=== PATIENT | male | born 1975 | race African-American/Black ===

== ENCOUNTER 2017-12-01 03:06 | Emergency (ER) | payer SELFPAY ==
[~2017-12-01] VITALS: Ht 185.4 cm; Wt 82.0 kg
[~2017-12-01 03:06] MED LIST: ARIP5TAB8 PO; BENZ1TAB10 PO; SERT100T12 PO
[2017-12-01 06:56] VITALS: BP 112/65
== END 2017-12-01 07:53 | disposition home or self-care (01) ==
LOC: EMS 03:07
DX: F10.129 Alcohol abuse with intoxication, unspecified (principal); F17.210 Nicotine dependence, cigarettes, uncomplicated; Y90.8 Blood alcohol level of 240 mg/100 ml or more
CPT/HCPCS: 36415; 99283; G0480

== ENCOUNTER 2018-06-30 09:47 | Inpatient (IN) | payer MEDICAID ==
[~2018-06-30] VITALS: Ht 182.9 cm; Wt 77.1 kg
[2018-06-30 09:50] VITALS: BP 117/76
[2018-06-30] MEDS ORDERED: RISP1 PO (10:25)
[2018-06-30] MEDS ORDERED: BUPR75 PO (10:25)
[2018-06-30] MEDS ORDERED: HALOPERIDOL 5 MG TABLET PO PRN (10:30)
[2018-06-30] MEDS ORDERED: LORazepam 2 MG TABLET PO PRN (10:30)
[2018-06-30] MEDS ORDERED: ZOLPIDEM TARTRATE 10 MG TABLET PO PRN (10:30)
[2018-06-30] MEDS ORDERED: GuaiFENesin/D-METHORPHAN [SUGAR-FREE] 200-20MG/10 ML SYRUP UDCUP PO PRN (11:15)
[2018-06-30] MEDS ORDERED: ACETAMINOPHEN 325 MG TABLET PO PRN (11:15)
[2018-06-30] MEDS ORDERED: MAGNESIUM HYDROXIDE SUSPENSION 30 ML UDCUP PO PRN (11:15)
[2018-06-30] MEDS ORDERED: ONDANSETRON HCL 4 MG TABLET PO PRN (11:15)
[2018-06-30] MEDS ORDERED: LOPERAMIDE HCL 2 MG CAPSULE PO PRN (11:15)
[2018-06-30] MEDS ORDERED: CloNIDine HCL 0.1 MG TABLET PO PRN (11:15)
[2018-06-30] MEDS ORDERED: NICOTINE 14 MG/24 HOUR PATCH TD PRN (11:15)
[2018-06-30] MEDS ORDERED: DOCUSATE SODIUM 100 MG CAPSULE PO PRN (11:15)
[2018-06-30] MEDS ORDERED: ALBUTEROL SULFATE HFA 90 MCG/PUFF 8 GM INHALER IH PRN (11:15)
[2018-06-30] MEDS ORDERED: MAG HYDROX/AL HYDROX/SIMETH ES 30 ML SUSPENSION UDCUP PO PRN (11:15)
[2018-06-30] MEDS ORDERED: IBUPROFEN 400 MG TABLET PO PRN (11:15)
[2018-06-30] MEDS ORDERED: PETROLATUM,WHITE 71 GM JELLY TP PRN (11:15)
[2018-06-30] MEDS: RisperiDONE 1 MG TABLET PO SCH (16:19)
[2018-06-30 16:34] VITALS: BP 121/90
[2018-07-01 06:38] VITALS: BP 104/64
[2018-07-01 08:11] LABS: AMPHET/METH SCREEN,URINE NEGATIVE (NEGATIVE); BARBITURATE SCREEN, URINE NEGATIVE (NEGATIVE); BENZODIAZEPINES SCREEN,URINE NEGATIVE (NEGATIVE); CANNABINOID SCREEN,URINE POSITIVE (NEGATIVE); COCAINE SCREEN,URINE NEGATIVE (NEGATIVE); METHADONE SCREEN, URINE NEGATIVE (NEGATIVE); OPIATE SCREEN,URINE NEGATIVE (NEGATIVE)
[2018-07-01 08:14] LABS: PHENCYCLIDINE SCREEN,URINE NEGATIVE (NEGATIVE)
[2018-07-01 08:39] LABS: BILIRUBIN,URINE NEGATIVE (NEGATIVE); GLUCOSE, URINE (UA) NEGATIVE (NEGATIVE); KETONES,URINE TRACE mg/dL (NEGATIVE); LEUKOCYTE ESTERASE ,URINE NEGATIVE (NEGATIVE); NITRATE,URINE NEGATIVE (NEGATIVE); OCCULT BLOOD,URINE NEGATIVE (NEGATIVE); PROTEIN,URINE NEGATIVE (NEGATIVE)
[2018-07-01 08:52] LABS: APPEARANCE,URINE HAZY (CLEAR)
[2018-07-01] MEDS: BuPROPion HCL XL 150 MG ER TABLET PO SCH (09:04)
[2018-07-01] MEDS: RisperiDONE 1 MG TABLET PO SCH ×2 (09:04→16:53)
[2018-07-01 09:40] VITALS: BP 110/69
[2018-07-01 16:42] VITALS: BP 110/70
[2018-07-02 07:15] VITALS: BP 106/80
[2018-07-02] MEDS: BuPROPion HCL XL 150 MG ER TABLET PO SCH (08:21)
[2018-07-02] MEDS: RisperiDONE 1 MG TABLET PO SCH ×2 (08:21→16:57)
[2018-07-02 08:43] VITALS: BP 107/67
[2018-07-02 16:22] VITALS: BP 97/51
[2018-07-03 06:58] VITALS: BP 108/72
[2018-07-03 09:00] VITALS: BP 105/69
[2018-07-03] MEDS: RisperiDONE 1 MG TABLET PO SCH (09:20)
[2018-07-03] MEDS: BuPROPion HCL XL 150 MG ER TABLET PO SCH (09:21)
[2018-07-03 16:00] VITALS: BP 104/61
[2018-07-03] MEDS: RisperiDONE 2 MG TABLET PO SCH (17:04)
[2018-07-04 04:49] VITALS: BP 108/72
[2018-07-04] MEDS: BuPROPion HCL XL 150 MG ER TABLET PO SCH (08:18)
[2018-07-04] MEDS: RisperiDONE 2 MG TABLET PO SCH ×2 (08:18→16:47)
[2018-07-04 08:32] LABS: BASOPHILS % (AUTO) 0.6 % (0.0-2.0); EOSINOPHILS % (AUTO) 3.9 % (1.0-6.0); HEMATOCRIT 39.8 % (41-53); HEMOGLOBIN 13.3 g/dL (13.5-17.5); LYMPHOCYTES # (AUTO) 1.4 K/uL (1.0-4.8); LYMPHOCYTES % (AUTO) 33.1 % (22.0-44.0); MEAN CORPUSCULAR HEMOGLOBIN 27.7 pg (26.0-34.0); MEAN CORPUSCULAR HGB CONC 33.3 G/dL (31.0-37.0); MEAN CORPUSCULAR VOLUME 83 fL (80-100); MONOCYTES # (AUTO) 0.3 K/uL (0.1-1.0); MONOCYTES % (AUTO) 7.8 % (2.0-9.0); NEUTROPHILS # (AUTO) 2.3 K/uL (1.8-7.7); NEUTROPHILS % (AUTO) 54.6 % (40.0-70.0); PLATELET COUNT (AUTO) 301 K/uL (150-450); RED BLOOD CELL COUNT(AUTO) 4.79 MIL/uL (4.50-5.90); RED CELL DISTRIBUTION WIDTH 15.3 % (11.5-14.5)
[2018-07-04 08:42] LABS: HEMOGLOBIN A1C 5.7 % (4.5-6.2)
[2018-07-04 08:54] VITALS: BP 103/69
[2018-07-04 09:18] LABS: ALANINE AMINOTRANSFERASE 19 U/L (12-78); ALBUMIN 3.5 g/dL (3.4-5.0); ALKALINE PHOSPHATASE 44 U/L (46-116); ANION GAP 4 mmol/L (8-16); ASPARTATE AMINOTRANSFERASE 13 U/L (15-37); BILIRUBIN,TOTAL 0.2 mg/dL (0.1-1.0); CALCIUM, TOTAL 8.6 mg/dL (8.8-10.5); CARBON DIOXIDE 32 mmol/L (22-29); CHLORIDE 106 mmol/L (98-107); CHOL/HDL RATIO 3.4 (4.2-7.3); CHOLESTEROL 155 mg/dL (131-200); CREATININE 1.04 mg/dL (0.60-1.30); FREE T4 (FREE THYROXINE) 0.79 ng/dL (0.76-1.46); GLOMERULAR FILTR. RATE CALC > 60 mL/min (>60); GLUCOSE,RANDOM 79 mg/dL (70-110); HDL CHOLESTEROL 45 mg/dL (40-60); LDL CHOL (CALC.) 92 mg/dL (0-130); POTASSIUM 4.6 mmol/L (3.5-5.1); SODIUM SERUM 142 mmol/L (136-145); TOTAL PROTEIN, SERUM 6.9 g/dL (6.4-8.2); TRIGLYCERIDES 88 mg/dL (15-150); UREA NITROGEN, BLOOD 14 mg/dL (7-18)
[2018-07-04 16:00] VITALS: BP 104/58
[2018-07-04] MEDS: FERROUS SULFATE 325 MG EC TABLET PO SCH (16:46)
[2018-07-05 03:23] VITALS: BP 102/62
[2018-07-05] MEDS: FERROUS SULFATE 325 MG EC TABLET PO SCH ×2 (07:01→17:05)
[2018-07-05 08:35] VITALS: BP 108/58
[2018-07-05] MEDS: FOLIC ACID 1 MG TABLET PO SCH (09:08)
[2018-07-05] MEDS: RisperiDONE 2 MG TABLET PO SCH ×2 (09:08→17:05)
[2018-07-05] MEDS: BuPROPion HCL XL 150 MG ER TABLET PO SCH (09:08)
[2018-07-05 16:00] VITALS: BP 130/85
[2018-07-06 06:36] VITALS: BP 125/78
[2018-07-06] MEDS: FERROUS SULFATE 325 MG EC TABLET PO SCH ×2 (06:41→16:28)
[2018-07-06] MEDS: RisperiDONE 2 MG TABLET PO SCH ×2 (08:18→16:28)
[2018-07-06] MEDS: BuPROPion HCL XL 150 MG ER TABLET PO SCH (08:18)
[2018-07-06] MEDS: FOLIC ACID 1 MG TABLET PO SCH (08:18)
[2018-07-06 08:33] VITALS: BP 121/72
[2018-07-06 16:45] VITALS: BP 108/70
[2018-07-07] MEDS: FERROUS SULFATE 325 MG EC TABLET PO SCH ×2 (06:03→16:19)
[2018-07-07 06:14] VITALS: BP 114/73
[2018-07-07] MEDS: RisperiDONE 2 MG TABLET PO SCH ×2 (08:33→16:19)
[2018-07-07] MEDS: FOLIC ACID 1 MG TABLET PO SCH (08:33)
[2018-07-07] MEDS: BuPROPion HCL XL 150 MG ER TABLET PO SCH (08:33)
[2018-07-07 09:00] VITALS: BP 115/68
[2018-07-07 16:14] VITALS: BP 108/64
[2018-07-08] VITALS: BP 114/56
[2018-07-08] MEDS: FERROUS SULFATE 325 MG EC TABLET PO SCH ×2 (06:34→16:38)
[2018-07-08] MEDS: RisperiDONE 2 MG TABLET PO SCH ×2 (08:29→16:38)
[2018-07-08] MEDS: FOLIC ACID 1 MG TABLET PO SCH (08:29)
[2018-07-08] MEDS: BuPROPion HCL XL 150 MG ER TABLET PO SCH (08:29)
[2018-07-08 09:07] VITALS: BP 116/78
[2018-07-08 16:00] VITALS: BP 124/93
[2018-07-09 01:09] VITALS: BP 128/92
[2018-07-09] MEDS: FERROUS SULFATE 325 MG EC TABLET PO SCH ×2 (06:09→16:04)
[2018-07-09] MEDS: FOLIC ACID 1 MG TABLET PO SCH (08:09)
[2018-07-09] MEDS: BuPROPion HCL XL 150 MG ER TABLET PO SCH (08:09)
[2018-07-09] MEDS: RisperiDONE 2 MG TABLET PO SCH ×2 (08:09→16:04)
[2018-07-09 08:24] VITALS: BP 140/99
[2018-07-09 16:21] VITALS: BP 120/91
[2018-07-10 03:52] VITALS: BP 126/82
[2018-07-10] MEDS: FERROUS SULFATE 325 MG EC TABLET PO SCH ×2 (06:42→17:00)
[2018-07-10 07:00] VITALS: BP 124/80
[2018-07-10] MEDS: BuPROPion HCL XL 150 MG ER TABLET PO SCH (09:18)
[2018-07-10] MEDS: FOLIC ACID 1 MG TABLET PO SCH (09:18)
[2018-07-10] MEDS: RisperiDONE 2 MG TABLET PO SCH ×2 (09:18→17:00)
[2018-07-10 09:26] VITALS: BP 139/87
[2018-07-10] MEDS ORDERED: ZOLPIDEM TARTRATE 10 MG TABLET PO PRN (16:15)
[2018-07-11] MEDS: FERROUS SULFATE 325 MG EC TABLET PO SCH ×2 (06:49→17:05)
[2018-07-11 08:15] VITALS: BP 137/66
[2018-07-11] MEDS: FOLIC ACID 1 MG TABLET PO SCH (09:41)
[2018-07-11] MEDS: BuPROPion HCL XL 150 MG ER TABLET PO SCH (09:41)
[2018-07-11] MEDS: RisperiDONE 2 MG TABLET PO SCH ×2 (09:41→17:05)
[2018-07-11] MEDS: LORazepam 2 MG TABLET PO PRN (11:20)
[2018-07-12] MEDS: FERROUS SULFATE 325 MG EC TABLET PO SCH ×2 (06:39→16:08)
[2018-07-12] MEDS: BuPROPion HCL XL 150 MG ER TABLET PO SCH (08:46)
[2018-07-12] MEDS: RisperiDONE 2 MG TABLET PO SCH (08:46)
[2018-07-12] MEDS: LORazepam 2 MG TABLET PO PRN ×2 (08:46→16:08)
[2018-07-12] MEDS: FOLIC ACID 1 MG TABLET PO SCH (08:46)
[2018-07-12] MEDS: RisperiDONE CONC 3 MG/3 ML SOLUTION ORAL.SYG PO SCH (16:07)
[2018-07-13 04:47] VITALS: BP 128/76
[2018-07-13] MEDS: FERROUS SULFATE 325 MG EC TABLET PO SCH ×2 (07:03→16:43)
[2018-07-13 08:10] VITALS: BP 136/88
[2018-07-13] MEDS: LORazepam 2 MG TABLET PO PRN ×4 (08:11→22:42)
[2018-07-13] MEDS: BuPROPion HCL XL 150 MG ER TABLET PO SCH (08:11)
[2018-07-13] MEDS: FOLIC ACID 1 MG TABLET PO SCH (08:11)
[2018-07-13] MEDS: RisperiDONE CONC 3 MG/3 ML SOLUTION ORAL.SYG PO SCH ×2 (08:11→16:47)
[2018-07-13 16:00] VITALS: BP 138/83
[2018-07-13] MEDS: DIVALPROEX SODIUM 500 MG ER TABLET PO SCH (16:43)
[2018-07-14 00:40] VITALS: BP 135/82
[2018-07-14] MEDS: FERROUS SULFATE 325 MG EC TABLET PO SCH (06:49)
[2018-07-14 07:56] LABS: BASOPHILS % (AUTO) 0.8 % (0.0-2.0); HEMATOCRIT 38.8 % (41-53); HEMOGLOBIN 13.2 g/dL (13.5-17.5); LYMPHOCYTES # (AUTO) 1.6 K/uL (1.0-4.8); LYMPHOCYTES % (AUTO) 25.3 % (22.0-44.0); MEAN CORPUSCULAR HEMOGLOBIN 27.6 pg (26.0-34.0); MEAN CORPUSCULAR HGB CONC 34.1 G/dL (31.0-37.0); MEAN CORPUSCULAR VOLUME 81 fL (80-100); MONOCYTES # (AUTO) 0.5 K/uL (0.1-1.0); MONOCYTES % (AUTO) 8.6 % (2.0-9.0); NEUTROPHILS # (AUTO) 3.6 K/uL (1.8-7.7); NEUTROPHILS % (AUTO) 59.3 % (40.0-70.0); PLATELET COUNT (AUTO) 250 K/uL (150-450); RED BLOOD CELL COUNT(AUTO) 4.79 MIL/uL (4.50-5.90); RED CELL DISTRIBUTION WIDTH 14.6 % (11.5-14.5)
[2018-07-14 07:57] VITALS: BP 130/77
[2018-07-14 08:14] VITALS: BP 130/77
[2018-07-14] MEDS: BuPROPion HCL XL 150 MG ER TABLET PO SCH (08:24)
[2018-07-14] MEDS: FOLIC ACID 1 MG TABLET PO SCH (08:24)
[2018-07-14] MEDS: RisperiDONE CONC 3 MG/3 ML SOLUTION ORAL.SYG PO SCH (08:31)
[2018-07-14] MEDS: DIVALPROEX SODIUM 500 MG ER TABLET PO SCH (08:31)
[2018-07-14] MEDS ORDERED: FOLI1 PO (13:05)
[2018-07-14] MEDS ORDERED: DIVA500T52 PO (13:05)
[2018-07-14] MEDS ORDERED: FERR-89 PO (13:05)
== END 2018-07-14 15:00 | disposition home or self-care (01) | DRG 750 ==
LOC: B2S 10:21 → B3A 07-10 08:24
PROVIDERS: ADMIT Psychiatry & Neurology Psychiatry; ATTEND Psychiatry & Neurology Psychiatry
DX: F25.1 Schizoaffective disorder, depressive type (principal); R45.851 Suicidal ideations; Z59.0 Homelessness; Z28.21 Immunization not carried out because of patient refusal; Z91.5 Personal history of self-harm; Z91.19 Patient's noncompliance with other medical treatment and regimen; G47.00 Insomnia, unspecified; F41.9 Anxiety disorder, unspecified; F17.200 Nicotine dependence, unspecified, uncomplicated; F10.10 Alcohol abuse, uncomplicated; D72.819 Decreased white blood cell count, unspecified; Z71.51 Drug abuse counseling and surveillance of drug abuser; Z71.6 Tobacco abuse counseling
CPT/HCPCS: 80307; 83036; 84439; 84443

== ENCOUNTER 2019-04-13 19:11 | Inpatient (IN) | payer MEDICAID ==
[~2019-04-13] VITALS: Ht 210.8 cm; Wt 78.0 kg
[~2019-04-13 19:11] MED LIST changes: -ARIP5TAB8 PO; -BENZ1TAB10 PO; +BUPR75 PO; +DIVA500T52 PO; +FERR-89 PO; +FOLI1 PO; +RISP1 PO; -SERT100T12 PO
[2019-04-13] MEDS ORDERED: HALOPERIDOL 5 MG TABLET PO PRN (19:45)
[2019-04-13] MEDS ORDERED: LORazepam 2 MG TABLET PO PRN (19:45)
[2019-04-13] MEDS ORDERED: ZOLPIDEM TARTRATE 10 MG TABLET PO PRN (19:45)
[2019-04-13] MEDS ORDERED: BUPR-93 PO (19:52)
[2019-04-13] MEDS ORDERED: RISP3 PO (19:52)
[2019-04-13 20:08] VITALS: BP 112/70
[2019-04-13 21:22] VITALS: BP 126/70
[2019-04-13 21:27] VITALS: BP 126/70
[2019-04-13] MEDS ORDERED: CloNIDine HCL 0.1 MG TABLET PO PRN (23:15)
[2019-04-13] MEDS ORDERED: IBUPROFEN 600 MG TABLET PO PRN (23:15)
[2019-04-13] MEDS ORDERED: LOPERAMIDE HCL 2 MG CAPSULE PO PRN (23:15)
[2019-04-13] MEDS ORDERED: BACITRACIN 28.4 GM OINTMENT TP PRN (23:15)
[2019-04-13] MEDS ORDERED: BENZOCAINE/MENTHOL LOZENGE MM PRN (23:15)
[2019-04-13] MEDS ORDERED: MAGNESIUM HYDROXIDE SUSPENSION 30 ML UDCUP PO PRN (23:15)
[2019-04-13] MEDS ORDERED: ALBUTEROL SULFATE HFA 90 MCG/PUFF 8 GM INHALER IH PRN (23:15)
[2019-04-13] MEDS ORDERED: ONDANSETRON HCL 4 MG TABLET PO PRN (23:15)
[2019-04-13] MEDS ORDERED: PETROLATUM,WHITE 28 GM JELLY TP PRN (23:15)
[2019-04-13] MEDS ORDERED: ACETAMINOPHEN 325 MG TABLET PO PRN (23:15)
[2019-04-13] MEDS ORDERED: MAG HYDROX/AL HYDROX/SIMETH ES 30 ML SUSPENSION UDCUP PO PRN (23:15)
[2019-04-14 05:00] VITALS: BP 117/72
[2019-04-14 07:41] LABS: BASOPHILS % (AUTO) 1.1 % (0.0-2.0); EOSINOPHILS % (AUTO) 4.4 % (1.0-6.0); HEMATOCRIT 36.9 % (41-53); HEMOGLOBIN 12.3 g/dL (13.5-17.5); LYMPHOCYTES # (AUTO) 1.9 K/uL (1.0-4.8); LYMPHOCYTES % (AUTO) 47.3 % (22.0-44.0); MEAN CORPUSCULAR HEMOGLOBIN 27.3 pg (26.0-34.0); MEAN CORPUSCULAR HGB CONC 33.4 G/dL (31.0-37.0); MEAN CORPUSCULAR VOLUME 82 fL (80-100); MONOCYTES # (AUTO) 0.5 K/uL (0.1-1.0); MONOCYTES % (AUTO) 11.9 % (2.0-9.0); NEUTROPHILS # (AUTO) 1.4 K/uL (1.8-7.7); NEUTROPHILS % (AUTO) 35.3 % (40.0-70.0); PLATELET COUNT (AUTO) 322 K/uL (150-450); RED BLOOD CELL COUNT(AUTO) 4.52 MIL/uL (4.50-5.90); RED CELL DISTRIBUTION WIDTH 15.9 % (11.5-14.5)
[2019-04-14 08:13] LABS: ALANINE AMINOTRANSFERASE 13 U/L (12-78); ALBUMIN 3.2 g/dL (3.4-5.0); ALKALINE PHOSPHATASE 42 U/L (46-116); ANION GAP 1 mmol/L (8-16); ASPARTATE AMINOTRANSFERASE 16 U/L (15-37); BILIRUBIN,TOTAL 0.3 mg/dL (0.1-1.0); CALCIUM, TOTAL 8.7 mg/dL (8.8-10.5); CARBON DIOXIDE 32 mmol/L (22-29); CHLORIDE 106 mmol/L (98-107); CHOL/HDL RATIO 2.5 (4.2-7.3); CHOLESTEROL 118 mg/dL (131-200); CREATININE 0.96 mg/dL (0.60-1.30); FREE T4 (FREE THYROXINE) 1.01 ng/dL (0.76-1.46); GLOMERULAR FILTR. RATE CALC > 60 mL/min (>60); GLUCOSE,RANDOM 87 mg/dL (70-110); HDL CHOLESTEROL 47 mg/dL (40-60); LDL CHOL (CALC.) 62 mg/dL (0-130); POTASSIUM 3.8 mmol/L (3.5-5.1); SODIUM SERUM 139 mmol/L (136-145); THYROID STIMULATING HORMONE 0.66 uIU/mL (0.36-3.74); TOTAL PROTEIN, SERUM 6.3 g/dL (6.4-8.2); TRIGLYCERIDES 44 mg/dL (15-150); UREA NITROGEN, BLOOD 11 mg/dL (7-18)
[2019-04-14 08:29] LABS: HEMOGLOBIN A1C 5.5 % (4.5-6.2)
[2019-04-14 08:32] VITALS: BP 114/69
[2019-04-14] MEDS: BuPROPion HCL XL 150 MG ER TABLET PO SCH (09:10)
[2019-04-14] MEDS: RisperiDONE 3 MG TABLET PO SCH (09:11)
[2019-04-14] MEDS: DOCUSATE SODIUM 100 MG CAPSULE PO SCH (09:11)
[2019-04-14] MEDS: OMEPRAZOLE 20 MG CAPSULE PO SCH (09:11)
[2019-04-14 16:22] VITALS: BP 117/76
[2019-04-15 06:58] VITALS: BP 118/74
[2019-04-15 08:06] VITALS: BP 122/76
[2019-04-15] MEDS: DOCUSATE SODIUM 100 MG CAPSULE PO SCH ×2 (09:00→09:32)
[2019-04-15] MEDS: BuPROPion HCL XL 150 MG ER TABLET PO SCH ×2 (09:00→09:31)
[2019-04-15] MEDS: OMEPRAZOLE 20 MG CAPSULE PO SCH ×2 (09:00→09:32)
[2019-04-15] MEDS: RisperiDONE 3 MG TABLET PO SCH ×2 (09:00→09:32)
[2019-04-15 16:31] VITALS: BP 112/72
[2019-04-16 06:28] VITALS: BP 118/76
[2019-04-16 08:30] VITALS: BP 116/74
[2019-04-16] MEDS: BuPROPion HCL XL 150 MG ER TABLET PO SCH (09:21)
[2019-04-16] MEDS: DOCUSATE SODIUM 100 MG CAPSULE PO SCH (09:22)
[2019-04-16] MEDS: RisperiDONE 3 MG TABLET PO SCH (09:22)
[2019-04-16] MEDS: OMEPRAZOLE 20 MG CAPSULE PO SCH (09:23)
[2019-04-16 16:45] VITALS: BP 116/74
[2019-04-17] MEDS: OMEPRAZOLE 20 MG CAPSULE PO SCH (09:41)
[2019-04-17] MEDS: RisperiDONE 3 MG TABLET PO SCH (09:42)
[2019-04-17] MEDS: DOCUSATE SODIUM 100 MG CAPSULE PO SCH (09:42)
[2019-04-17] MEDS: BuPROPion HCL XL 150 MG ER TABLET PO SCH (09:42)
[2019-04-17 11:06] VITALS: BP 105/71
[2019-04-17 16:11] VITALS: BP 110/66
[2019-04-18 06:54] VITALS: BP 113/68
[2019-04-18 08:12] VITALS: BP 121/42
[2019-04-18] MEDS: DOCUSATE SODIUM 100 MG CAPSULE PO SCH (08:41)
[2019-04-18] MEDS: OMEPRAZOLE 20 MG CAPSULE PO SCH (08:41)
[2019-04-18] MEDS: BuPROPion HCL XL 150 MG ER TABLET PO SCH (08:41)
[2019-04-18] MEDS: RisperiDONE 3 MG TABLET PO SCH (08:41)
[2019-04-18 16:00] VITALS: BP 114/70
[2019-04-18] MEDS ORDERED: OMEP20 PO (17:21)
[2019-04-18] MEDS ORDERED: DOCU100C33 PO (17:21)
== END 2019-04-18 18:45 | disposition home or self-care (01) | DRG 750 ==
LOC: B3A 20:06
PROVIDERS: ADMIT Psychiatry & Neurology Psychiatry; ATTEND Psychiatry & Neurology Psychiatry
DX: F25.9 Schizoaffective disorder, unspecified (principal); E44.0 Moderate protein-calorie malnutrition; R45.851 Suicidal ideations; K21.9 Gastro-esophageal reflux disease without esophagitis; F17.200 Nicotine dependence, unspecified, uncomplicated; G47.00 Insomnia, unspecified; K59.00 Constipation, unspecified; Z71.6 Tobacco abuse counseling; Z59.0 Homelessness; Z79.899 Other long term (current) drug therapy; Z68.1 Body mass index [BMI] 19.9 or less, adult
CPT/HCPCS: 83036; 84439; 84443

== ENCOUNTER 2019-05-29 22:52 | Inpatient (IN) | payer MEDICAID ==
[~2019-05-29] VITALS: Ht 177.8 cm; Wt 77.1 kg
[~2019-05-29 22:52] MED LIST changes: +BUPR-93 PO; -BUPR75 PO; -DIVA500T52 PO; +DOCU100C33 PO; -FERR-89 PO; -FOLI1 PO; +OMEP20 PO; -RISP1 PO; +RISP3 PO
[2019-05-30] MEDS ORDERED: ZOLPIDEM TARTRATE 10 MG TABLET PO PRN (01:30)
[2019-05-30] MEDS ORDERED: HALOPERIDOL 5 MG TABLET PO PRN (01:30)
[2019-05-30 02:08] VITALS: BP 117/80
[2019-05-30 02:32] VITALS: BP 117/80
[2019-05-30] MEDS ORDERED: INFLUENZA VIRUS VACCINE QVS 2019-20 (3YR+)/PF 60 MCG/0.5 ML SYRINGE IM ONE (06:00)
[2019-05-30 08:08] VITALS: BP 97/61
[2019-05-30] MEDS ORDERED: MAGNESIUM HYDROXIDE SUSPENSION 30 ML UDCUP PO PRN (13:45)
[2019-05-30] MEDS ORDERED: LOPERAMIDE HCL 2 MG CAPSULE PO PRN (13:45)
[2019-05-30] MEDS ORDERED: PETROLATUM,WHITE 28 GM JELLY TP PRN (13:45)
[2019-05-30] MEDS ORDERED: MAG HYDROX/AL HYDROX/SIMETH ES 30 ML SUSPENSION UDCUP PO PRN (13:45)
[2019-05-30] MEDS ORDERED: ONDANSETRON HCL 4 MG TABLET PO PRN (13:45)
[2019-05-30] MEDS ORDERED: IBUPROFEN 400 MG TABLET PO PRN (13:45)
[2019-05-30] MEDS ORDERED: CloNIDine HCL 0.1 MG TABLET PO PRN (13:45)
[2019-05-30] MEDS ORDERED: NICOTINE 14 MG/24 HOUR PATCH TD PRN (13:45)
[2019-05-30] MEDS ORDERED: ALBUTEROL SULFATE HFA 90 MCG/PUFF 8 GM INHALER IH PRN (13:45)
[2019-05-30] MEDS ORDERED: ACETAMINOPHEN 325 MG TABLET PO PRN (13:45)
[2019-05-30] MEDS ORDERED: DOCUSATE SODIUM 100 MG CAPSULE PO PRN (13:45)
[2019-05-30] MEDS ORDERED: GuaiFENesin/D-METHORPHAN [SUGAR-FREE] 200-20MG/10 ML SYRUP UDCUP PO PRN (13:45)
[2019-05-30 16:00] VITALS: BP 119/88
[2019-05-30] MEDS: LORazepam 2 MG TABLET PO PRN (20:36)
[2019-05-30] MEDS: RisperiDONE 2 MG TABLET PO SCH (20:36)
[2019-05-31 06:18] VITALS: BP 122/79
[2019-05-31 08:26] VITALS: BP 112/67
[2019-05-31] MEDS: BuPROPion HCL XL 150 MG ER TABLET PO SCH (08:30)
[2019-05-31] MEDS: RisperiDONE 2 MG TABLET PO SCH ×2 (08:30→20:37)
[2019-06-01] VITALS: BP 112/69
[2019-06-01] MEDS: RisperiDONE 2 MG TABLET PO SCH (08:32)
[2019-06-01] MEDS: BuPROPion HCL XL 150 MG ER TABLET PO SCH (08:32)
[2019-06-01] MEDS: RisperiDONE 3 MG TABLET PO SCH ×2 (09:00→20:09)
[2019-06-01] MEDS ORDERED: RisperiDONE 1 MG TABLET PO ONE (11:00)
[2019-06-01 16:00] VITALS: BP 106/67
[2019-06-02 06:39] VITALS: BP 107/60
[2019-06-02] MEDS: RisperiDONE 3 MG TABLET PO SCH ×2 (08:16→20:17)
[2019-06-02] MEDS: BuPROPion HCL XL 150 MG ER TABLET PO SCH (08:16)
[2019-06-02 16:06] VITALS: BP 108/76
[2019-06-03 08:00] VITALS: BP 101/61
[2019-06-03] MEDS: BuPROPion HCL XL 150 MG ER TABLET PO SCH (08:19)
[2019-06-03] MEDS: RisperiDONE 3 MG TABLET PO SCH ×2 (08:19→20:14)
[2019-06-03 16:03] VITALS: BP 102/65
[2019-06-03] MEDS: LORazepam 2 MG TABLET PO PRN (20:14)
[2019-06-04 04:41] VITALS: BP 107/66
[2019-06-04 08:15] VITALS: BP 113/79
[2019-06-04] MEDS: BuPROPion HCL XL 150 MG ER TABLET PO SCH (08:33)
[2019-06-04] MEDS: RisperiDONE 3 MG TABLET PO SCH ×2 (08:33→21:00)
[2019-06-04 16:04] VITALS: BP 108/70
[2019-06-05 05:01] VITALS: BP 106/68
[2019-06-05 08:09] VITALS: BP 99/62
[2019-06-05] MEDS: RisperiDONE 3 MG TABLET PO SCH ×2 (09:02→20:24)
[2019-06-05] MEDS: BuPROPion HCL XL 150 MG ER TABLET PO SCH (09:02)
[2019-06-05 16:05] VITALS: BP 109/67
[2019-06-06 06:23] VITALS: BP 119/57
[2019-06-06] MEDS: BuPROPion HCL XL 150 MG ER TABLET PO SCH (08:06)
[2019-06-06] MEDS: RisperiDONE 3 MG TABLET PO SCH (08:06)
[2019-06-06 08:35] VITALS: BP 112/70
== END 2019-06-06 12:15 | disposition home or self-care (01) | DRG 750 ==
LOC: B3A 05-30 01:00
DX: F25.1 Schizoaffective disorder, depressive type (principal); R45.851 Suicidal ideations; Z59.0 Homelessness; F10.10 Alcohol abuse, uncomplicated; F15.10 Other stimulant abuse, uncomplicated; K21.9 Gastro-esophageal reflux disease without esophagitis; K59.00 Constipation, unspecified; Z65.3 Problems related to other legal circumstances; Z79.899 Other long term (current) drug therapy; Z91.5 Personal history of self-harm; F41.9 Anxiety disorder, unspecified

== ENCOUNTER 2019-11-03 10:30 | Inpatient (IN) | payer MEDICAID ==
[~2019-11-03] VITALS: Ht 182.9 cm; Wt 68.0 kg
[~2019-11-03 10:30] MED LIST changes: -DOCU100C33 PO; -OMEP20 PO
[2019-11-03 12:27] VITALS: BP 111/65
[2019-11-03] MEDS ORDERED: HALOPERIDOL 5 MG TABLET PO PRN (13:00)
[2019-11-03] MEDS ORDERED: ZOLPIDEM TARTRATE 10 MG TABLET PO PRN (13:00)
[2019-11-03] MEDS ORDERED: ALBUTEROL SULFATE HFA 90 MCG/PUFF 8 GM INHALER IH PRN (14:15)
[2019-11-03] MEDS ORDERED: BENZOCAINE/MENTHOL LOZENGE MM PRN (14:15)
[2019-11-03] MEDS ORDERED: ACETAMINOPHEN 325 MG TABLET PO PRN (14:15)
[2019-11-03] MEDS ORDERED: MAG HYDROX/AL HYDROX/SIMETH ES 30 ML SUSPENSION UDCUP PO PRN (14:15)
[2019-11-03] MEDS ORDERED: ONDANSETRON HCL 4 MG TABLET PO PRN (14:15)
[2019-11-03] MEDS ORDERED: MAGNESIUM HYDROXIDE SUSPENSION 30 ML UDCUP PO PRN (14:15)
[2019-11-03] MEDS ORDERED: PETROLATUM,WHITE 28 GM JELLY TP PRN (14:15)
[2019-11-03] MEDS ORDERED: BACITRACIN 28.4 GM OINTMENT TP PRN (14:15)
[2019-11-03] MEDS ORDERED: CloNIDine HCL 0.1 MG TABLET PO PRN (14:15)
[2019-11-03] MEDS ORDERED: OMEPRAZOLE 20 MG CAPSULE PO PRN (14:15)
[2019-11-03] MEDS ORDERED: IBUPROFEN 600 MG TABLET PO PRN (14:15)
[2019-11-03] MEDS ORDERED: LOPERAMIDE HCL 2 MG CAPSULE PO PRN (14:15)
[2019-11-03] MEDS ORDERED: DOCUSATE SODIUM 100 MG CAPSULE PO PRN (14:15)
[2019-11-03] MEDS: RisperiDONE 3 MG TABLET PO SCH (14:20)
[2019-11-03] MEDS: BuPROPion HCL XL 150 MG ER TABLET PO SCH (14:20)
[2019-11-03 16:05] VITALS: BP 118/67
[2019-11-03] MEDS: NICOTINE 21 MG/24 HOUR PATCH TD SCH (16:43)
[2019-11-03] MEDS: LORazepam 2 MG TABLET PO PRN (20:27)
[2019-11-04 05:38] VITALS: BP 124/68
[2019-11-04] MEDS: RisperiDONE 3 MG TABLET PO SCH (08:28)
[2019-11-04] MEDS: BuPROPion HCL XL 150 MG ER TABLET PO SCH (08:28)
[2019-11-04 08:59] VITALS: BP 119/61
[2019-11-04] MEDS: NICOTINE 21 MG/24 HOUR PATCH TD SCH (09:00)
[2019-11-04 16:01] VITALS: BP 126/66
[2019-11-05 03:22] VITALS: BP 123/64
[2019-11-05 07:40] LABS: BASOPHILS % (AUTO) 0.6 % (0.0-2.0); EOSINOPHILS % (AUTO) 3.1 % (1.0-6.0); HEMATOCRIT 38.5 % (41-53); HEMOGLOBIN 12.6 g/dL (13.5-17.5); LYMPHOCYTES # (AUTO) 1.5 K/uL (1.0-4.8); LYMPHOCYTES % (AUTO) 38.3 % (22.0-44.0); MEAN CORPUSCULAR HGB CONC 32.7 G/dL (31.0-37.0); MEAN CORPUSCULAR VOLUME 83 fL (80-100); MONOCYTES # (AUTO) 0.4 K/uL (0.1-1.0); MONOCYTES % (AUTO) 9.5 % (2.0-9.0); NEUTROPHILS # (AUTO) 1.9 K/uL (1.8-7.7); NEUTROPHILS % (AUTO) 48.5 % (40.0-70.0); PLATELET COUNT (AUTO) 404 K/uL (150-450); RED BLOOD CELL COUNT(AUTO) 4.65 MIL/uL (4.50-5.90)
[2019-11-05 07:45] LABS: APPEARANCE,URINE CLEAR (CLEAR); BILIRUBIN,URINE NEGATIVE (NEGATIVE); GLUCOSE, URINE (UA) NEGATIVE (NEGATIVE); KETONES,URINE NEGATIVE (NEGATIVE); LEUKOCYTE ESTERASE ,URINE NEGATIVE (NEGATIVE); NITRATE,URINE NEGATIVE (NEGATIVE); OCCULT BLOOD,URINE NEGATIVE (NEGATIVE); PROTEIN,URINE NEGATIVE (NEGATIVE); UROBILINOGEN,URINE 0.2 mg/dL (<=1.0)
[2019-11-05 08:04] VITALS: BP 96/60
[2019-11-05 08:04] LABS: AMPHET/METH SCREEN,URINE NEGATIVE (NEGATIVE); BARBITURATE SCREEN, URINE NEGATIVE (NEGATIVE); BENZODIAZEPINES SCREEN,URINE NEGATIVE (NEGATIVE); CANNABINOID SCREEN,URINE NEGATIVE (NEGATIVE); COCAINE SCREEN,URINE NEGATIVE (NEGATIVE); METHADONE SCREEN, URINE NEGATIVE (NEGATIVE); OPIATE SCREEN,URINE NEGATIVE (NEGATIVE)
[2019-11-05 08:05] LABS: ALANINE AMINOTRANSFERASE 15 U/L (12-78); ALBUMIN 3.2 g/dL (3.4-5.0); ALKALINE PHOSPHATASE 56 U/L (46-116); ANION GAP 4 mmol/L (8-16); ASPARTATE AMINOTRANSFERASE 8 U/L (15-37); BILIRUBIN,TOTAL 0.2 mg/dL (0.1-1.0); CALCIUM, TOTAL 8.9 mg/dL (8.8-10.5); CARBON DIOXIDE 31 mmol/L (22-29); CHLORIDE 104 mmol/L (98-107); CHOL/HDL RATIO 3.2 (4.2-7.3); CHOLESTEROL 149 mg/dL (131-200); CREATININE 1.09 mg/dL (0.60-1.30); FREE T4 (FREE THYROXINE) 0.94 ng/dL (0.76-1.46); GLOMERULAR FILTR. RATE CALC > 60 mL/min (>60); GLUCOSE,RANDOM 80 mg/dL (70-110); HDL CHOLESTEROL 46 mg/dL (40-60); LDL CHOL (CALC.) 92 mg/dL (0-130); POTASSIUM 4.3 mmol/L (3.5-5.1); SODIUM SERUM 139 mmol/L (136-145); THYROID STIMULATING HORMONE 0.88 uIU/mL (0.36-3.74); TOTAL PROTEIN, SERUM 7.1 g/dL (6.4-8.2); TRIGLYCERIDES 54 mg/dL (15-150); UREA NITROGEN, BLOOD 16 mg/dL (7-18)
[2019-11-05 08:06] LABS: PHENCYCLIDINE SCREEN,URINE NEGATIVE (NEGATIVE)
[2019-11-05] MEDS: BuPROPion HCL XL 150 MG ER TABLET PO SCH (08:21)
[2019-11-05] MEDS: RisperiDONE 3 MG TABLET PO SCH (08:22)
[2019-11-05] MEDS: NICOTINE 21 MG/24 HOUR PATCH TD SCH (08:40)
[2019-11-05 16:00] VITALS: BP 127/61
[2019-11-06 06:31] VITALS: BP 124/60
[2019-11-06 08:05] VITALS: BP 131/67
[2019-11-06] MEDS: BuPROPion HCL XL 150 MG ER TABLET PO SCH (08:22)
[2019-11-06] MEDS: RisperiDONE 3 MG TABLET PO SCH (08:22)
[2019-11-06] MEDS: NICOTINE 21 MG/24 HOUR PATCH TD SCH (08:38)
[2019-11-06 16:01] VITALS: BP 113/63
[2019-11-07 06:18] VITALS: BP 102/62
[2019-11-07] MEDS: RisperiDONE 3 MG TABLET PO SCH (07:58)
[2019-11-07] MEDS: BuPROPion HCL XL 150 MG ER TABLET PO SCH (07:59)
[2019-11-07 08:05] VITALS: BP 111/61
[2019-11-07] MEDS: NICOTINE 21 MG/24 HOUR PATCH TD SCH (08:14)
[2019-11-07 16:01] VITALS: BP 115/74
[2019-11-07] MEDS: LORazepam 2 MG TABLET PO PRN (20:36)
[2019-11-07] MEDS ORDERED: TraZODone HCL 50 MG TABLET PO SCH (21:00)
[2019-11-08 06:22] VITALS: BP 132/79
[2019-11-08] MEDS: RisperiDONE 3 MG TABLET PO SCH (08:30)
[2019-11-08] MEDS: NICOTINE 21 MG/24 HOUR PATCH TD SCH (08:30)
[2019-11-08] MEDS: BuPROPion HCL XL 150 MG ER TABLET PO SCH (08:30)
[2019-11-08 08:39] VITALS: BP 101/58
[2019-11-08] MEDS ORDERED: TRAZ-252 PO (09:47)
== END 2019-11-08 13:00 | disposition home or self-care (01) | DRG 750 ==
LOC: B3A 13:16
PROVIDERS: ADMIT Psychiatry & Neurology Psychiatry; ATTEND Psychiatry & Neurology Psychiatry
DX: F25.9 Schizoaffective disorder, unspecified (principal); R45.851 Suicidal ideations; Z59.0 Homelessness; Z91.14 Patient's other noncompliance with medication regimen; F41.9 Anxiety disorder, unspecified; F19.10 Other psychoactive substance abuse, uncomplicated; K59.00 Constipation, unspecified; K21.9 Gastro-esophageal reflux disease without esophagitis; F10.10 Alcohol abuse, uncomplicated; F12.90 Cannabis use, unspecified, uncomplicated; F15.10 Other stimulant abuse, uncomplicated; Y90.9 Presence of alcohol in blood, level not specified; Z72.0 Tobacco use; Z91.5 Personal history of self-harm
CPT/HCPCS: 80307; 83036; 84436; 84439; 84443; 86592

== ENCOUNTER 2021-03-08 15:04 | Inpatient (IN) | payer MEDICAID ==
[~2021-03-08] VITALS: Ht 182.9 cm; Wt 72.1 kg
[~2021-03-08 15:04] MED LIST changes: -RISP3 PO; +RISP3TAB35 PO; +TRAZ-252 PO
[2021-03-08 20:56] VITALS: BP 106/69
[2021-03-08] MEDS ORDERED: ZOLPIDEM TARTRATE 10 MG TABLET PO PRN (21:00)
[2021-03-08] MEDS ORDERED: HALOPERIDOL 5 MG TABLET PO PRN (21:00)
[2021-03-08] MEDS ORDERED: LORazepam 2 MG TABLET PO PRN (21:00)
[2021-03-08 21:34] VITALS: BP 132/92
[2021-03-08] MEDS ORDERED: BISMUTH SUBSALICYLATE 262 MG CHEWABLE TABLET CHEW PRN (23:30)
[2021-03-08] MEDS ORDERED: BISACODYL 5 MG EC TABLET PO PRN (23:30)
[2021-03-09 00:10] VITALS: BP 132/92
[2021-03-09 07:25] LABS: BASOPHILS % (AUTO) 0.5 % (0.0-2.0); EOSINOPHILS % (AUTO) 3.5 % (1.0-6.0); HEMATOCRIT 37.6 % (41-53); HEMOGLOBIN 12.3 g/dL (13.5-17.5); LYMPHOCYTES % (AUTO) 48.1 % (22.0-44.0); MEAN CORPUSCULAR HEMOGLOBIN 26.8 pg (26.0-34.0); MEAN CORPUSCULAR HGB CONC 32.6 G/dL (31.0-37.0); MEAN CORPUSCULAR VOLUME 82 fL (80-100); MONOCYTES # (AUTO) 0.4 K/uL (0.1-1.0); MONOCYTES % (AUTO) 10.7 % (2.0-9.0); NEUTROPHILS # (AUTO) 1.5 K/uL (1.8-7.7); NEUTROPHILS % (AUTO) 37.2 % (40.0-70.0); PLATELET COUNT (AUTO) 334 K/uL (150-450); RED BLOOD CELL COUNT(AUTO) 4.57 MIL/uL (4.50-5.90); RED CELL DISTRIBUTION WIDTH 14.9 % (11.5-14.5)
[2021-03-09 07:57] LABS: ALANINE AMINOTRANSFERASE 18 U/L (12-78); ALKALINE PHOSPHATASE 46 U/L (46-116); ANION GAP 5 mmol/L (8-16); ASPARTATE AMINOTRANSFERASE 13 U/L (15-37); BILIRUBIN,TOTAL 0.2 mg/dL (0.1-1.0); CALCIUM, TOTAL 8.5 mg/dL (8.8-10.5); CARBON DIOXIDE 29 mmol/L (22-29); CHLORIDE 106 mmol/L (98-107); CHOL/HDL RATIO 2.7 (4.2-7.3); CHOLESTEROL 128 mg/dL (131-200); CREATININE 0.72 mg/dL (0.60-1.30); FREE T4 (FREE THYROXINE) 1.09 ng/dL (0.76-1.46); GLOMERULAR FILTR. RATE CALC > 60 mL/min (>60); GLUCOSE,RANDOM 94 mg/dL (70-110); HDL CHOLESTEROL 47 mg/dL (40-60); LDL CHOL (CALC.) 67 mg/dL (0-130); POTASSIUM 3.8 mmol/L (3.5-5.1); SODIUM SERUM 140 mmol/L (136-145); THYROID STIMULATING HORMONE 0.31 uIU/mL (0.36-3.74); TOTAL PROTEIN, SERUM 6.2 g/dL (6.4-8.2); TRIGLYCERIDES 68 mg/dL (15-150); UREA NITROGEN, BLOOD 9 mg/dL (7-18)
[2021-03-09] MEDS ORDERED: LOPERAMIDE HCL 2 MG CAPSULE PO PRN (08:45)
[2021-03-09] MEDS ORDERED: GuaiFENesin/D-METHORPHAN [SUGAR-FREE] 200-20MG/10 ML SYRUP UDCUP PO PRN (08:45)
[2021-03-09] MEDS ORDERED: HydrOXYzine PAMOATE 50 MG CAPSULE PO PRN (08:45)
[2021-03-09] MEDS ORDERED: MAG HYDROX/AL HYDROX/SIMETH ES 30 ML SUSPENSION UDCUP PO PRN (08:45)
[2021-03-09] MEDS ORDERED: TUBERCULIN, PURIFIED PROTEIN DERIVATIVE 5 TU/0.1 ML SYRINGE ID ONE (08:45)
[2021-03-09] MEDS ORDERED: PROMETHAZINE HCL 25 MG TABLET PO PRN (08:45)
[2021-03-09] MEDS ORDERED: PALIPERIDONE PALMITATE 234 MG/1.5 ML SYRINGE IM ONE (08:45)
[2021-03-09] MEDS ORDERED: ACETAMINOPHEN 325 MG TABLET PO PRN (08:45)
[2021-03-09] MEDS ORDERED: MAGNESIUM HYDROXIDE SUSPENSION 30 ML UDCUP PO PRN (08:45)
[2021-03-09] MEDS ORDERED: OLANZapine 5 MG RAPDIS TABLET PO PRN (08:45)
[2021-03-09 08:46] VITALS: BP 102/64
[2021-03-09] MEDS: MULTIVITAMINS WITH MINERALS, THERAPEUTIC TABLET PO SCH (09:00)
[2021-03-09] MEDS: NALTREXONE HCL 50 MG TABLET PO SCH (09:00)
[2021-03-09] MEDS: FOLIC ACID 1 MG TABLET PO SCH (09:00)
[2021-03-09] MEDS: THIAMINE 100 MG TABLET PO SCH ×2 (09:00→16:23)
[2021-03-09] MEDS: OMEGA-3/DHA/EPA/FISH OIL 1,000 MG CAPSULE PO SCH (09:00)
[2021-03-09] MEDS: BuPROPion HCL XL 150 MG ER TABLET PO SCH (09:00)
[2021-03-09 09:20] LABS: GLUCOMETER DEV NAME(LOC) POC.BV
[2021-03-09 16:49] VITALS: BP 114/65
[2021-03-09] MEDS: MELATONIN 5 MG TABLET PO SCH (20:47)
[2021-03-09] MEDS ORDERED: OLANZapine 5 MG RAPDIS TABLET PO SCH (21:00)
[2021-03-09] MEDS ORDERED: RisperiDONE 2 MG TABLET PO SCH (21:00)
[2021-03-10 06:30] VITALS: BP 125/75
[2021-03-10 07:20] LABS: HEMOGLOBIN A1C 5.5 % (3.8-5.6)
[2021-03-10 07:48] LABS: CHOL/HDL RATIO 3.3 (4.2-7.3); FREE T4 (FREE THYROXINE) 0.98 ng/dL (0.76-1.46); THYROID STIMULATING HORMONE 2.48 uIU/mL (0.36-3.74)
[2021-03-10 08:20] VITALS: BP 103/63
[2021-03-10] MEDS: FOLIC ACID 1 MG TABLET PO SCH (08:42)
[2021-03-10] MEDS: MULTIVITAMINS WITH MINERALS, THERAPEUTIC TABLET PO SCH (08:42)
[2021-03-10] MEDS: BuPROPion HCL XL 150 MG ER TABLET PO SCH (08:42)
[2021-03-10] MEDS: NALTREXONE HCL 50 MG TABLET PO SCH (08:42)
[2021-03-10] MEDS: THIAMINE 100 MG TABLET PO SCH ×2 (08:42→16:18)
[2021-03-10] MEDS: OMEGA-3/DHA/EPA/FISH OIL 1,000 MG CAPSULE PO SCH (08:42)
[2021-03-10 16:07] VITALS: BP 104/64
[2021-03-10] MEDS ORDERED: RisperiDONE MICROSPHERES 50 MG/2 ML SYRINGE IM ONE (16:45)
[2021-03-10] MEDS: MELATONIN 5 MG TABLET PO SCH (20:10)
[2021-03-10] MEDS ORDERED: RisperiDONE 3 MG TABLET PO SCH (21:00)
[2021-03-11 05:56] VITALS: BP 115/76
[2021-03-11] MEDS: RisperiDONE 1 MG TABLET PO PRN ×2 (06:43→06:44)
[2021-03-11 08:18] VITALS: BP 109/62
[2021-03-11] MEDS: OMEGA-3/DHA/EPA/FISH OIL 1,000 MG CAPSULE PO SCH (08:48)
[2021-03-11] MEDS: THIAMINE 100 MG TABLET PO SCH ×2 (08:48→16:55)
[2021-03-11] MEDS: FOLIC ACID 1 MG TABLET PO SCH (08:48)
[2021-03-11] MEDS: BuPROPion HCL XL 150 MG ER TABLET PO SCH (08:48)
[2021-03-11] MEDS: MULTIVITAMINS WITH MINERALS, THERAPEUTIC TABLET PO SCH (08:48)
[2021-03-11] MEDS: NALTREXONE HCL 50 MG TABLET PO SCH (08:48)
[2021-03-11 16:20] VITALS: BP 103/65
[2021-03-11] MEDS: MELATONIN 5 MG TABLET PO SCH (20:55)
[2021-03-11] MEDS ORDERED: RisperiDONE 4 MG TABLET PO SCH (21:00)
[2021-03-12 04:47] VITALS: BP 108/62
[2021-03-12 08:19] VITALS: BP 105/66
[2021-03-12] MEDS: FOLIC ACID 1 MG TABLET PO SCH (08:28)
[2021-03-12] MEDS: OMEGA-3/DHA/EPA/FISH OIL 1,000 MG CAPSULE PO SCH (08:28)
[2021-03-12] MEDS: BuPROPion HCL XL 150 MG ER TABLET PO SCH (08:29)
[2021-03-12] MEDS: THIAMINE 100 MG TABLET PO SCH ×2 (08:29→16:37)
[2021-03-12] MEDS: MULTIVITAMINS WITH MINERALS, THERAPEUTIC TABLET PO SCH (08:29)
[2021-03-12] MEDS: NALTREXONE HCL 50 MG TABLET PO SCH (08:29)
[2021-03-12 16:19] VITALS: BP 119/85
[2021-03-12] MEDS: MELATONIN 5 MG TABLET PO SCH (20:43)
[2021-03-12] MEDS ORDERED: RisperiDONE 2 MG TABLET PO SCH (21:00)
[2021-03-13 06:05] VITALS: BP 118/79
[2021-03-13 08:14] VITALS: BP 120/76
[2021-03-13] MEDS: THIAMINE 100 MG TABLET PO SCH ×2 (08:59→16:40)
[2021-03-13] MEDS: OMEGA-3/DHA/EPA/FISH OIL 1,000 MG CAPSULE PO SCH (08:59)
[2021-03-13] MEDS: MULTIVITAMINS WITH MINERALS, THERAPEUTIC TABLET PO SCH (08:59)
[2021-03-13] MEDS: BuPROPion HCL XL 150 MG ER TABLET PO SCH (08:59)
[2021-03-13] MEDS: NALTREXONE HCL 50 MG TABLET PO SCH (08:59)
[2021-03-13] MEDS: FOLIC ACID 1 MG TABLET PO SCH (08:59)
[2021-03-13] MEDS ORDERED: PALIPERIDONE PALMITATE 156 MG/ML SYRINGE IM ONE (09:00)
[2021-03-13 16:21] VITALS: BP 109/64
[2021-03-13] MEDS: RisperiDONE 3 MG TABLET PO SCH (20:48)
[2021-03-13] MEDS: MELATONIN 5 MG TABLET PO SCH (20:48)
[2021-03-14 02:03] VITALS: BP 102/66
[2021-03-14] MEDS: OMEGA-3/DHA/EPA/FISH OIL 1,000 MG CAPSULE PO SCH (09:36)
[2021-03-14] MEDS: THIAMINE 100 MG TABLET PO SCH ×2 (09:36→16:58)
[2021-03-14] MEDS: NALTREXONE HCL 50 MG TABLET PO SCH (09:36)
[2021-03-14] MEDS: BuPROPion HCL XL 150 MG ER TABLET PO SCH (09:36)
[2021-03-14] MEDS: MULTIVITAMINS WITH MINERALS, THERAPEUTIC TABLET PO SCH (09:36)
[2021-03-14] MEDS: FOLIC ACID 1 MG TABLET PO SCH (09:37)
[2021-03-14 10:30] VITALS: BP 108/68
[2021-03-14 16:17] VITALS: BP 105/62
[2021-03-14] MEDS: MELATONIN 5 MG TABLET PO SCH (20:52)
[2021-03-14] MEDS: RisperiDONE 3 MG TABLET PO SCH (20:52)
[2021-03-15 00:15] VITALS: BP 101/72
[2021-03-15] MEDS: NALTREXONE HCL 50 MG TABLET PO SCH (08:32)
[2021-03-15] MEDS: THIAMINE 100 MG TABLET PO SCH ×2 (08:32→16:51)
[2021-03-15] MEDS: MULTIVITAMINS WITH MINERALS, THERAPEUTIC TABLET PO SCH (08:32)
[2021-03-15] MEDS: BuPROPion HCL XL 150 MG ER TABLET PO SCH (08:32)
[2021-03-15] MEDS: OMEGA-3/DHA/EPA/FISH OIL 1,000 MG CAPSULE PO SCH (08:32)
[2021-03-15] MEDS: FOLIC ACID 1 MG TABLET PO SCH (08:32)
[2021-03-15 08:36] VITALS: BP 104/60
[2021-03-15 16:31] VITALS: BP 106/67
[2021-03-15] MEDS: RisperiDONE 3 MG TABLET PO SCH (20:33)
[2021-03-15] MEDS: MELATONIN 5 MG TABLET PO SCH (20:33)
[2021-03-16 05:52] VITALS: BP 113/73
[2021-03-16] MEDS: OMEGA-3/DHA/EPA/FISH OIL 1,000 MG CAPSULE PO SCH (08:26)
[2021-03-16] MEDS: MULTIVITAMINS WITH MINERALS, THERAPEUTIC TABLET PO SCH (08:26)
[2021-03-16] MEDS: BuPROPion HCL XL 150 MG ER TABLET PO SCH (08:26)
[2021-03-16] MEDS: NALTREXONE HCL 50 MG TABLET PO SCH (08:26)
[2021-03-16] MEDS: THIAMINE 100 MG TABLET PO SCH ×2 (08:26→16:46)
[2021-03-16] MEDS: FOLIC ACID 1 MG TABLET PO SCH (08:26)
[2021-03-16 09:42] VITALS: BP 113/76
[2021-03-16 16:06] VITALS: BP 108/70
[2021-03-16] MEDS: MELATONIN 5 MG TABLET PO SCH (20:12)
[2021-03-16] MEDS: RisperiDONE 3 MG TABLET PO SCH (20:12)
[2021-03-17 02:17] VITALS: BP 111/75
[2021-03-17 08:18] VITALS: BP 103/59
[2021-03-17] MEDS: FOLIC ACID 1 MG TABLET PO SCH (08:23)
[2021-03-17] MEDS: MULTIVITAMINS WITH MINERALS, THERAPEUTIC TABLET PO SCH (08:23)
[2021-03-17] MEDS: NALTREXONE HCL 50 MG TABLET PO SCH (08:24)
[2021-03-17] MEDS: BuPROPion HCL XL 150 MG ER TABLET PO SCH (08:24)
[2021-03-17] MEDS: THIAMINE 100 MG TABLET PO SCH ×2 (08:24→16:51)
[2021-03-17] MEDS: OMEGA-3/DHA/EPA/FISH OIL 1,000 MG CAPSULE PO SCH (08:24)
[2021-03-17 16:21] VITALS: BP 111/66
[2021-03-17] MEDS: MELATONIN 5 MG TABLET PO SCH (21:06)
[2021-03-17] MEDS: RisperiDONE 3 MG TABLET PO SCH (21:06)
[2021-03-18 05:44] VITALS: BP 114/70
[2021-03-18 08:41] VITALS: BP 105/54
[2021-03-18] MEDS: OMEGA-3/DHA/EPA/FISH OIL 1,000 MG CAPSULE PO SCH (09:17)
[2021-03-18] MEDS: MULTIVITAMINS WITH MINERALS, THERAPEUTIC TABLET PO SCH (09:18)
[2021-03-18] MEDS: BuPROPion HCL XL 150 MG ER TABLET PO SCH (09:18)
[2021-03-18] MEDS: FOLIC ACID 1 MG TABLET PO SCH (09:18)
[2021-03-18] MEDS: NALTREXONE HCL 50 MG TABLET PO SCH (09:18)
[2021-03-18] MEDS: THIAMINE 100 MG TABLET PO SCH ×2 (09:18→16:52)
[2021-03-18 16:13] VITALS: BP 104/68
[2021-03-18] MEDS: RisperiDONE 3 MG TABLET PO SCH (20:46)
[2021-03-18] MEDS: MELATONIN 5 MG TABLET PO SCH (20:46)
[2021-03-19 04:52] VITALS: BP 118/71
[2021-03-19 08:01] LABS: COVID AG,FIA SOURCE NASAL SWAB
[2021-03-19] MEDS: BuPROPion HCL XL 150 MG ER TABLET PO SCH (08:54)
[2021-03-19] MEDS: MULTIVITAMINS WITH MINERALS, THERAPEUTIC TABLET PO SCH (08:55)
[2021-03-19] MEDS: OMEGA-3/DHA/EPA/FISH OIL 1,000 MG CAPSULE PO SCH (08:55)
[2021-03-19] MEDS: NALTREXONE HCL 50 MG TABLET PO SCH (08:55)
[2021-03-19 09:43] VITALS: BP 110/78
[2021-03-19 16:16] VITALS: BP 101/62
[2021-03-19] MEDS: MELATONIN 5 MG TABLET PO SCH (20:37)
[2021-03-19] MEDS: RisperiDONE 3 MG TABLET PO SCH (20:37)
[2021-03-20 04:30] VITALS: BP 115/74
[2021-03-20 08:28] VITALS: BP 109/65
[2021-03-20] MEDS: BuPROPion HCL XL 150 MG ER TABLET PO SCH (09:45)
[2021-03-20] MEDS: MULTIVITAMINS WITH MINERALS, THERAPEUTIC TABLET PO SCH (09:45)
[2021-03-20] MEDS: OMEGA-3/DHA/EPA/FISH OIL 1,000 MG CAPSULE PO SCH (09:46)
[2021-03-20] MEDS: NALTREXONE HCL 50 MG TABLET PO SCH (09:46)
[2021-03-20 16:09] VITALS: BP 100/68
[2021-03-20] MEDS: MELATONIN 5 MG TABLET PO SCH (20:40)
[2021-03-20] MEDS: RisperiDONE 3 MG TABLET PO SCH (20:40)
[2021-03-21 06:46] VITALS: BP 110/68
[2021-03-21 08:37] VITALS: BP 107/73
[2021-03-21] MEDS: NALTREXONE HCL 50 MG TABLET PO SCH (08:41)
[2021-03-21] MEDS: OMEGA-3/DHA/EPA/FISH OIL 1,000 MG CAPSULE PO SCH (08:41)
[2021-03-21] MEDS: MULTIVITAMINS WITH MINERALS, THERAPEUTIC TABLET PO SCH (08:41)
[2021-03-21] MEDS: BuPROPion HCL XL 150 MG ER TABLET PO SCH (08:41)
[2021-03-21 16:09] VITALS: BP 102/71
[2021-03-21] MEDS: RisperiDONE 3 MG TABLET PO SCH (20:03)
[2021-03-21] MEDS: MELATONIN 5 MG TABLET PO SCH (20:03)
[2021-03-22 03:38] VITALS: BP 105/68
[2021-03-22] MEDS: MULTIVITAMINS WITH MINERALS, THERAPEUTIC TABLET PO SCH (08:36)
[2021-03-22] MEDS: BuPROPion HCL XL 150 MG ER TABLET PO SCH (08:37)
[2021-03-22] MEDS: NALTREXONE HCL 50 MG TABLET PO SCH (08:37)
[2021-03-22] MEDS: OMEGA-3/DHA/EPA/FISH OIL 1,000 MG CAPSULE PO SCH (08:39)
[2021-03-22 09:16] VITALS: BP 109/66
[2021-03-22 16:08] VITALS: BP 105/66
[2021-03-22] MEDS: RisperiDONE 3 MG TABLET PO SCH (20:23)
[2021-03-22] MEDS: MELATONIN 5 MG TABLET PO SCH (20:24)
[2021-03-23 05:55] VITALS: BP 110/68
[2021-03-23 08:15] VITALS: BP 116/67
[2021-03-23] MEDS: MULTIVITAMINS WITH MINERALS, THERAPEUTIC TABLET PO SCH (09:05)
[2021-03-23] MEDS: NALTREXONE HCL 50 MG TABLET PO SCH (09:05)
[2021-03-23] MEDS: BuPROPion HCL XL 150 MG ER TABLET PO SCH (09:05)
[2021-03-23] MEDS: OMEGA-3/DHA/EPA/FISH OIL 1,000 MG CAPSULE PO SCH (09:05)
[2021-03-23 16:23] VITALS: BP 87/62
[2021-03-23] MEDS: MELATONIN 5 MG TABLET PO SCH (20:16)
[2021-03-23] MEDS: RisperiDONE 3 MG TABLET PO SCH (20:16)
[2021-03-23 20:35] VITALS: BP 108/72
[2021-03-24 05:22] VITALS: BP 115/74
[2021-03-24] MEDS ORDERED: RisperiDONE MICROSPHERES 50 MG/2 ML SYRINGE IM SCH (09:00)
[2021-03-24] MEDS: OMEGA-3/DHA/EPA/FISH OIL 1,000 MG CAPSULE PO SCH (09:17)
[2021-03-24] MEDS: NALTREXONE HCL 50 MG TABLET PO SCH (09:17)
[2021-03-24] MEDS: BuPROPion HCL XL 150 MG ER TABLET PO SCH (09:17)
[2021-03-24] MEDS: MULTIVITAMINS WITH MINERALS, THERAPEUTIC TABLET PO SCH (09:17)
[2021-03-24 09:30] VITALS: BP 101/62
[2021-03-24 16:08] VITALS: BP 119/84
[2021-03-24] MEDS: MELATONIN 5 MG TABLET PO SCH (20:36)
[2021-03-24] MEDS: RisperiDONE 3 MG TABLET PO SCH (20:36)
[2021-03-24 21:31] LABS: GLUCOMETER DEV NAME(LOC) POC.BV
[2021-03-25 01:05] VITALS: BP 111/69
[2021-03-25 07:39] LABS: BASOPHILS % (AUTO) 0.8 % (0.0-2.0); EOSINOPHILS % (AUTO) 8.1 % (1.0-6.0); HEMOGLOBIN 13.2 g/dL (13.5-17.5); LYMPHOCYTES # (AUTO) 2.3 K/uL (1.0-4.8); LYMPHOCYTES % (AUTO) 40.1 % (22.0-44.0); MEAN CORPUSCULAR VOLUME 82 fL (80-100); MONOCYTES # (AUTO) 0.4 K/uL (0.1-1.0); MONOCYTES % (AUTO) 7.4 % (2.0-9.0); NEUTROPHILS # (AUTO) 2.5 K/uL (1.8-7.7); NEUTROPHILS % (AUTO) 43.6 % (40.0-70.0); PLATELET COUNT (AUTO) 366 K/uL (150-450); RED BLOOD CELL COUNT(AUTO) 4.88 MIL/uL (4.50-5.90)
[2021-03-25 08:02] LABS: ALANINE AMINOTRANSFERASE 18 U/L (12-78); ALBUMIN 3.1 g/dL (3.4-5.0); ALKALINE PHOSPHATASE 53 U/L (46-116); ANION GAP 4 mmol/L (8-16); ASPARTATE AMINOTRANSFERASE 12 U/L (15-37); BILIRUBIN,TOTAL 0.2 mg/dL (0.1-1.0); CARBON DIOXIDE 28 mmol/L (22-29); CHLORIDE 103 mmol/L (98-107); CREATININE 1.01 mg/dL (0.60-1.30); GLOMERULAR FILTR. RATE CALC > 60 mL/min (>60); GLUCOSE,RANDOM 85 mg/dL (70-110); POTASSIUM 4.2 mmol/L (3.5-5.1); SODIUM SERUM 135 mmol/L (136-145); TOTAL PROTEIN, SERUM 7.2 g/dL (6.4-8.2); UREA NITROGEN, BLOOD 16 mg/dL (7-18)
[2021-03-25 08:04] VITALS: BP 110/67
[2021-03-25] MEDS: NALTREXONE HCL 50 MG TABLET PO SCH (08:45)
[2021-03-25] MEDS: BuPROPion HCL XL 150 MG ER TABLET PO SCH (08:45)
[2021-03-25] MEDS: OMEGA-3/DHA/EPA/FISH OIL 1,000 MG CAPSULE PO SCH (08:45)
[2021-03-25] MEDS: MULTIVITAMINS WITH MINERALS, THERAPEUTIC TABLET PO SCH (08:45)
[2021-03-25] MEDS ORDERED: NALT50TA PO (12:01)
[2021-03-25] MEDS ORDERED: MELA5TAB40 PO ×2 (12:01→12:07)
[2021-03-25] MEDS ORDERED: BUPR-49 PO (12:01)
[2021-03-25] MEDS ORDERED: RISP3TAB44 PO (12:01)
[2021-03-25] MEDS ORDERED: OMEG-135 PO (12:01)
[2021-03-25] MEDS ORDERED: NALT50TA6 PO (12:08)
[2021-03-25] MEDS ORDERED: RISP3TAB35 PO (12:12)
== END 2021-03-25 13:00 | disposition home or self-care (01) | DRG 750 ==
LOC: B3A 21:00 → B2S 03-24 10:54
PROVIDERS: ADMIT Psychiatry & Neurology Psychiatry; ATTEND Psychiatry & Neurology Psychiatry
DX: F25.1 Schizoaffective disorder, depressive type (principal); Z91.14 Patient's other noncompliance with medication regimen; D64.9 Anemia, unspecified; F12.90 Cannabis use, unspecified, uncomplicated; F60.0 Paranoid personality disorder; J44.9 Chronic obstructive pulmonary disease, unspecified; K59.00 Constipation, unspecified; Z20.822 Contact with and (suspected) exposure to COVID-19; K21.9 Gastro-esophageal reflux disease without esophagitis; Z87.891 Personal history of nicotine dependence; Z91.19 Patient's noncompliance with other medical treatment and regimen; Z55.9 Problems related to education and literacy, unspecified; Z59.9 Problem related to housing and economic circumstances, unspecified; Z65.3 Problems related to other legal circumstances; Z79.899 Other long term (current) drug therapy
CPT/HCPCS: 80053; 80061; 83036; 84439; 84443; 85025; 86592; J2794; Q9967

== ENCOUNTER 2025-06-14 12:46 | Inpatient (IN) | payer MEDICAID ==
[~2025-06-14] VITALS: Ht 182.9 cm; Wt 73.6 kg
[~2025-06-14 12:46] MED LIST changes: +BUPR-50 PO; -BUPR-93 PO; -TRAZ-252 PO
[2025-06-14 13:00] VITALS: BP 122/96; PULSE 100; RESP 18; TEMP 98.2; O2SAT 99
[2025-06-14] MEDS ORDERED: ZOLPIDEM TARTRATE 10 MG TABLET PO PRN (14:00)
[2025-06-14 16:41] LABS: GLUCOMETER DEV NAME(LOC) POC.BV; POC SARS-COV2 AG, FIA NEGATIVE (NEGATIVE)
[2025-06-14 21:56] VITALS: BP 107/72; PULSE 87; RESP 18; TEMP 98.4; O2SAT 96
[2025-06-15 08:07] VITALS: BP 117/75; PULSE 91; RESP 18; TEMP 97.6; O2SAT 95
[2025-06-15 08:40] LABS: PLATELET COUNT (AUTO) 286 K/uL (150-450); RED BLOOD CELL COUNT(AUTO) 4.20 MIL/uL (4.50-5.90); RED CELL DISTRIBUTION WIDTH 15.1 % (11.5-14.5); WHITE BLOOD COUNT (AUTO) 4.0 K/uL (4.5-11.0)
[2025-06-15 09:15] LABS: ASPARTATE AMINOTRANSFERASE 36 U/L (15-37); CALCIUM, TOTAL 8.6 mg/dL (8.8-10.5); CHOL/HDL RATIO 2.4 (4.2-7.3); CREATININE 0.95 mg/dL (0.60-1.30); GLOMERULAR FILTR. RATE CALC > 60 mL/min (>60); GLUCOSE,RANDOM 99 mg/dL (70-110); SODIUM SERUM 143 mmol/L (136-145); TOTAL PROTEIN, SERUM 6.6 g/dL (6.4-8.2); UREA NITROGEN, BLOOD 13 mg/dL (7-18)
[2025-06-15 09:35] LABS: LDL CHOL (CALC.) 60 mg/dL (0-130)
[2025-06-15 12:50] VITALS: BP 117/75; PULSE 91; RESP 18; TEMP 97.6; O2SAT 95
[2025-06-15 20:35] VITALS: BP 116/85; PULSE 87; RESP 17; TEMP 97.5; O2SAT 99
[2025-06-16 08:13] VITALS: BP 102/60; PULSE 70; RESP 17; TEMP 98.1; O2SAT 100
[2025-06-16 08:46] LABS: APPEARANCE,URINE CLEAR (CLEAR); GLUCOSE, URINE (UA) NEGATIVE (NEGATIVE); LEUKOCYTE ESTERASE ,URINE NEGATIVE (NEGATIVE); NITRATE,URINE NEGATIVE (NEGATIVE); OCCULT BLOOD,URINE NEGATIVE (NEGATIVE); PH,URINE DRUG SCREEN 6.5 (5.0-8.0); SPECIFIC GRAVITIY, URINE 1.020 (1.003-1.030)
[2025-06-16 08:52] LABS: ALCOHOL, URINE DRUG SCREEN NEGATIVE (NEGATIVE); AMPHET/METH SCREEN,URINE NEGATIVE (NEGATIVE); BARBITURATE SCREEN, URINE NEGATIVE (NEGATIVE); CANNABINOID SCREEN,URINE POSITIVE (NEGATIVE); COCAINE SCREEN,URINE NEGATIVE (NEGATIVE); METHADONE SCREEN, URINE NEGATIVE (NEGATIVE)
[2025-06-16 14:58] VITALS: BP 118/78; PULSE 80; RESP 18; TEMP 98.2; O2SAT 97
[2025-06-16 15:00] VITALS: BP 118/78; PULSE 80; RESP 18; TEMP 98.2; O2SAT 97
[2025-06-16 17:44] VITALS: BP 108/80; PULSE 80; RESP 17; TEMP 98.2; O2SAT 98
[2025-06-16 20:10] VITALS: BP 109/73; PULSE 67; RESP 17; TEMP 97.7; O2SAT 100
[2025-06-17 08:21] VITALS: BP 124/60; PULSE 72; RESP 18; TEMP 97.8; O2SAT 100
[2025-06-17 10:17] VITALS: BP 124/58; PULSE 72; RESP 18; TEMP 97.8; O2SAT 100
[2025-06-17 20:10] VITALS: BP 105/68; PULSE 76; RESP 17; TEMP 97.7; O2SAT 100
[2025-06-17 20:58] VITALS: BP 105/68; PULSE 76; RESP 18; TEMP 97.7; O2SAT 100
[2025-06-18 08:06] VITALS: BP 105/62; PULSE 65; RESP 18; TEMP 97.2; O2SAT 99
[2025-06-18 16:30] LABS: GLUCOMETER DEV NAME(LOC) POC.BV; POC SARS-COV2 AG, FIA NEGATIVE (NEGATIVE)
[2025-06-18] MEDS: NICOTINE 7 MG/24 HOUR PATCH TD SCH (18:11)
[2025-06-18 20:19] VITALS: BP 108/81; PULSE 71; RESP 17; TEMP 98.2; O2SAT 100
[2025-06-19 08:28] VITALS: BP 101/69; PULSE 87; RESP 17; TEMP 98.2; O2SAT 97
[2025-06-19 20:11] VITALS: BP 100/67; PULSE 76; RESP 18; TEMP 98.3; O2SAT 98
[2025-06-20 08:00] VITALS: BP 101/61; PULSE 87; RESP 16; TEMP 97.9; O2SAT 99
[2025-06-20 20:13] VITALS: BP 112/72; PULSE 77; RESP 17; TEMP 98.2; O2SAT 98
[2025-06-21 08:00] VITALS: BP 101/65; PULSE 96; RESP 18; TEMP 98.4; O2SAT 100
[2025-06-22 08:00] VITALS: BP 103/74; PULSE 77; RESP 18; TEMP 98; O2SAT 100
[2025-06-22 20:15] VITALS: BP 115/78; PULSE 78; RESP 17; TEMP 97.8; O2SAT 97
[2025-06-23 08:23] VITALS: BP 95/72; PULSE 81; RESP 16; TEMP 97.5; O2SAT 99
[2025-06-23 12:33] VITALS: BP 115/82; RESP 17; O2SAT 99
[2025-06-23 20:07] VITALS: BP 109/89; PULSE 87; RESP 18; TEMP 97.6; O2SAT 98
[2025-06-24 08:22] VITALS: BP 101/70; PULSE 83; RESP 16; TEMP 98.8; O2SAT 98
[2025-06-24 20:04] VITALS: RESP 17
[2025-06-25 08:33] VITALS: BP 103/77; PULSE 89; RESP 16; TEMP 98.9; O2SAT 98
[2025-06-25 20:29] VITALS: BP 112/72; PULSE 67; RESP 17; TEMP 98.2; O2SAT 97
[2025-06-26 08:14] VITALS: BP 102/75; PULSE 79; RESP 16; TEMP 99; O2SAT 97
[2025-06-26 20:09] VITALS: BP 115/78; PULSE 68; RESP 17; TEMP 97.8; O2SAT 97
[2025-06-27 08:15] VITALS: BP 102/86; PULSE 69; RESP 16; TEMP 98.4; O2SAT 100
[2025-06-27] MEDS: CITALOPRAM HYDROBROMIDE 20 MG TABLET PO SCH (12:34)
[2025-06-27 20:14] VITALS: BP 114/77; PULSE 68; RESP 17; TEMP 97.7; O2SAT 97
[2025-06-28 08:06] VITALS: BP 109/78; PULSE 77; RESP 18; TEMP 97.9; O2SAT 95
[2025-06-28 20:15] VITALS: BP 106/66; PULSE 67; RESP 17; TEMP 98.3; O2SAT 97
[2025-06-29 08:14] VITALS: BP 102/78; PULSE 78; RESP 16; TEMP 97.9; O2SAT 98
[2025-06-29] MEDS: CITALOPRAM HYDROBROMIDE 20 MG TABLET PO SCH (17:15)
[2025-06-29 20:29] VITALS: BP 101/84; PULSE 83; RESP 17; TEMP 97.9; O2SAT 100
[2025-06-30 08:27] VITALS: BP 100/71; PULSE 81; RESP 18; TEMP 97.3; O2SAT 99
[2025-06-30 20:19] VITALS: BP 102/78; PULSE 86; RESP 17; TEMP 98.1; O2SAT 98
[2025-07-01 08:36] VITALS: BP 91/74; PULSE 61; RESP 16; TEMP 98.7; O2SAT 99
[2025-07-01 20:10] VITALS: BP 110/76; PULSE 80; RESP 17; TEMP 98.2; O2SAT 98
[2025-07-02 10:04] VITALS: BP 101/61; PULSE 71; RESP 18; TEMP 97.9; O2SAT 100
[2025-07-02 20:12] VITALS: BP 100/70; PULSE 61; TEMP 98.1; O2SAT 100
[2025-07-03 08:12] VITALS: BP 100/76; PULSE 72; RESP 16; TEMP 98.6; O2SAT 97
[2025-07-03 20:07] VITALS: RESP 18
[2025-07-04 08:31] VITALS: BP 101/74; PULSE 67; RESP 16; TEMP 97.9; O2SAT 98
[2025-07-04 20:07] VITALS: BP 106/72; PULSE 67; RESP 17; TEMP 97.7; O2SAT 97
[2025-07-05 08:31] VITALS: BP 103/70; PULSE 67; RESP 18; TEMP 97.5; O2SAT 100
[2025-07-05 20:00] VITALS: BP 107/72; PULSE 71; RESP 17; TEMP 98.4; O2SAT 99
[2025-07-06 08:28] VITALS: BP 100/68; PULSE 65; RESP 18; TEMP 98.5; O2SAT 100
[2025-07-06] MEDS: BuPROPion HCL XL 150 MG ER TABLET PO SCH (11:45)
[2025-07-06 20:00] VITALS: BP 102/73; PULSE 78; RESP 18; TEMP 98.3; O2SAT 100
[2025-07-07 08:07] VITALS: BP 119/77; PULSE 79; RESP 18; TEMP 98.1; O2SAT 96
[2025-07-07 20:05] VITALS: BP 100/67; PULSE 72; RESP 16; TEMP 98.4; O2SAT 98
[2025-07-08 08:20] VITALS: BP 105/82; PULSE 91; RESP 18; TEMP 98; O2SAT 100
[2025-07-08] MEDS: OMEPRAZOLE 20 MG CAPSULE PO SCH (14:33)
[2025-07-08] MEDS: MAG HYDROX/ALUMINUM HYD/SIMETH ES 30 ML SUSPENSION UDCUP PO PRN (14:33)
[2025-07-08] MEDS: IBUPROFEN 600 MG TABLET PO PRN (16:04)
[2025-07-08 16:06] VITALS: BP 100/80; PULSE 80; RESP 17
[2025-07-08 17:06] VITALS: RESP 17
[2025-07-08 20:29] VITALS: BP 116/85; PULSE 68; RESP 18; TEMP 98.1; O2SAT 98
[2025-07-09 08:15] VITALS: BP 112/81; PULSE 81; RESP 19; TEMP 98.6; O2SAT 98
[2025-07-09 08:28] VITALS: RESP 18
[2025-07-09 09:28] VITALS: RESP 18
[2025-07-09 20:38] VITALS: BP 113/82; PULSE 80; RESP 18; TEMP 98.2; O2SAT 97
[2025-07-10 08:16] VITALS: BP 109/62; PULSE 82; RESP 16; TEMP 98.5; O2SAT 98
[2025-07-10 20:24] VITALS: BP 116/85; PULSE 67; RESP 17; TEMP 98.2; O2SAT 99
[2025-07-11 08:28] VITALS: BP 100/82; PULSE 78; RESP 16; TEMP 98.9; O2SAT 100
[2025-07-11 20:17] VITALS: BP 109/82; PULSE 85; RESP 18; TEMP 98.5; O2SAT 100
[2025-07-12 08:12] VITALS: BP 108/76; PULSE 78; RESP 17; TEMP 97.3; O2SAT 98
[2025-07-12 20:29] VITALS: BP 114/85; PULSE 83; RESP 18; TEMP 98.1; O2SAT 100
[2025-07-13 08:08] VITALS: BP 115/88; PULSE 69; RESP 16; TEMP 97.9; O2SAT 100
[2025-07-13 20:32] VITALS: BP 127/79; PULSE 68; RESP 18; TEMP 97.8; O2SAT 99
[2025-07-14 08:20] VITALS: BP 119/91; PULSE 76; RESP 16; TEMP 99; O2SAT 100
[2025-07-14 20:57] VITALS: BP 130/92; PULSE 80; RESP 18; TEMP 98.4; O2SAT 99
[2025-07-15 08:07] VITALS: BP 111/87; PULSE 87; RESP 18; TEMP 98.6; O2SAT 99
[2025-07-15] MEDS ORDERED: OMEP-148 PO (09:44)
[2025-07-15] MEDS ORDERED: RISP3TAB77 PO (09:45)
[2025-07-15] MEDS ORDERED: BUSP10TA23 PO (09:45)
[2025-07-15] MEDS ORDERED: CITA-144 PO (09:47)
== END 2025-07-15 11:05 | disposition home or self-care (01) | DRG 761 ==
LOC: B2S 13:57
PROVIDERS: ADMIT Psychiatry & Neurology Child & Adolescent Psychiatry; ATTEND Psychiatry & Neurology Child & Adolescent Psychiatry
PROC: GZ58ZZZ Individual Psychotherapy, Cognitive-Behavioral (ICD-10-PCS; 2025-06-15)
PROC: GZ56ZZZ Individual Psychotherapy, Supportive (ICD-10-PCS; 2025-06-15)
PROC: GZHZZZZ Group Psychotherapy (ICD-10-PCS; principal; 2025-06-21)
DX: F25.1 Schizoaffective disorder, depressive type (principal); R45.851 Suicidal ideations; F12.10 Cannabis abuse, uncomplicated; D64.9 Anemia, unspecified; F41.9 Anxiety disorder, unspecified; K21.9 Gastro-esophageal reflux disease without esophagitis; K59.00 Constipation, unspecified; R51.9 Headache, unspecified; F15.90 Other stimulant use, unspecified, uncomplicated; Z79.899 Other long term (current) drug therapy; Z20.822 Contact with and (suspected) exposure to COVID-19
CPT/HCPCS: 80053; 80061; 80307; 81003; 83036; 84439; 84443; 85025; 87081

== ENCOUNTER 2025-07-08 19:52 | Emergency (ER) | payer MEDICAID, OTHER ==
[~2025-07-08] VITALS: Ht 182.9 cm; Wt 75.0 kg
[2025-07-08 20:08] VITALS: TEMP 97.7
[2025-07-08 21:34] LABS: PLATELET COUNT (AUTO) 267 K/uL (150-450); RED BLOOD CELL COUNT(AUTO) 4.45 MIL/uL (4.50-5.90); RED CELL DISTRIBUTION WIDTH 15.2 % (11.5-14.5); WHITE BLOOD COUNT (AUTO) 6.6 K/uL (4.5-11.0)
[2025-07-08 21:42] LABS: CALCIUM, TOTAL 8.9 mg/dL (8.8-10.5); CREATININE 1.07 mg/dL (0.60-1.30); GLOMERULAR FILTR. RATE CALC > 60 mL/min (>60); GLUCOSE,RANDOM 96 mg/dL (70-110); SODIUM SERUM 137 mmol/L (136-145); UREA NITROGEN, BLOOD 16 mg/dL (7-18)
[2025-07-08 21:48] LABS: ASPARTATE AMINOTRANSFERASE 12.0 U/L (15-37); TOTAL PROTEIN, SERUM 7.1 g/dL (6.4-8.2)
[2025-07-08] MEDS: KETOROLAC TROMETHAMINE 30 MG/ML VIAL IVP ONE (23:54)
[2025-07-08] MEDS: SODIUM CHLORIDE 0.9% 1,000 ML IV ONE (23:54)
[2025-07-08 23:56] LABS: APPEARANCE,URINE CLEAR (CLEAR); GLUCOSE, URINE (UA) NEGATIVE (NEGATIVE); LEUKOCYTE ESTERASE ,URINE NEGATIVE (NEGATIVE); NITRATE,URINE NEGATIVE (NEGATIVE); OCCULT BLOOD,URINE NEGATIVE (NEGATIVE); SPECIFIC GRAVITIY, URINE 1.011 (1.003-1.030)
[2025-07-09 01:05] VITALS: BP 123/94; PULSE 74; RESP 18; O2SAT 98
== END 2025-07-09 01:23 ==
LOC: EMS 19:52
DX: K59.00 Constipation, unspecified (principal); R10.9 Unspecified abdominal pain; F20.9 Schizophrenia, unspecified; F32.A Depression, unspecified; F17.210 Nicotine dependence, cigarettes, uncomplicated
CPT/HCPCS: 99285; 74176; 96374; 80048; 80076; 81003; 83690; 85025; 36415; 93005; J1885; J7030